=== PATIENT | female | born 1930 | race Caucasian/White ===

== ENCOUNTER 2016-05-21 10:07 | Emergency (ER) | payer OTHER, MEDICARE ==
[~2016-05-21] VITALS: Ht 167.6 cm; Wt 58.1 kg
[~2016-05-21 10:07] MED LIST: AUGMENTIN875 MG PO; BESIVANCE5 ML RIGHT EYE; Berocca Plus PO; CALTRATE 6001 TABLET PO; Desyrel PO; FLAXSEED OIL1000 M2 PO; Glucophage PO; Lopid PO; Milk Of Magnesia,MOM PO; OMEGA 3-6-91200 MG PO; OXAYDO5 MG PO; Osteo-Biflex,Flex-A- PO; Prevacid PO; Theragran-M,Centrum, PO; Vicodin,Lortab 5/500 PO; Vitamin B Complex PO
[2016-05-21 10:14] VITALS: BP 162/67
[2016-05-21] MEDS ORDERED: METOPROLOL TART25 MG PO ×2 (10:54)
[2016-05-21] MEDS ORDERED: WARFARIN SODIUM5 MG PO (10:54)
[2016-05-21 12:26] LABS: HEMATOCRIT 35.2 % (36.0-46.0); MCH 28.7 PG (29.0-34.0); MCHC 33.8 G/DL (30.0-36.0); MCV 84.8 FL (83-99); MEAN PLAT.VOLUME 9.2 uM^3 (9.5-12.4); PLATELET COUNT 257 K/uL (156-360); RBC DIS.WIDTH-CV 13.9 % (11.8-14.6); RED BLOOD COUNT 4.15 M/uL (3.80-5.20)
[2016-05-21 12:36] LABS: INTER. NORMALIZED RATIO 2.6; PROTHROMBIN TIME 26.8 (9.2-11.2); PTT 44.1 (25-32)
[2016-05-21] MEDS ORDERED: ROXICODONE5 MG PO (13:13)
== END 2016-05-21 13:36 | disposition home or self-care (01) ==
LOC: EME 10:07
PROVIDERS: Nurse Practitioner Family
PROC: 2W3RX1Z Immobilization of Left Lower Leg using Splint (ICD-10-PCS; principal; 2016-05-21)
DX: S82.65XA Nondisplaced fracture of lateral malleolus of left fibula, initial encounter for closed fracture (principal); W00.0XXA Fall on same level due to ice and snow, initial encounter; I48.91 Unspecified atrial fibrillation; Z79.01 Long term (current) use of anticoagulants; E11.9 Type 2 diabetes mellitus without complications
CPT/HCPCS: 73610; 85027; 85610; 85730; 99281; 99284